=== PATIENT | male | born 1980 | race Caucasian/White ===

== ENCOUNTER 2024-04-05 17:28 | Emergency (ER) | payer BC ==
[2024-04-05] MEDS: Lidocaine 1% 20 ML MDV INJECT ONE (18:15)
[2024-04-05] MEDS: Diphtheria,Pertussis(Acell),Tetanus Vaccine 0.5 ML Syringe IM ONE (18:20)
[2024-04-05] MEDS ORDERED: ceFAZolin 1 GM in Sodium Chloride 0.9% 50 ML IV ONE (18:20)
[2024-04-05] MEDS: ceFAZolin 1 GM in Water For Injection, Sterile 10 ML IV ONE (18:38)
[2024-04-05] MEDS: HYDROmorphone 0.5 MG/0.5 ML Syringe IVPUSH ONE ×2 (18:47→19:31)
[2024-04-05] MEDS: Lidocaine 1% 10 ML MDV INJECT ONE ×2 (19:32→19:50)
[2024-04-05] MEDS ORDERED: Lidocaine 1% 10 ML MDV ONE (19:43)
[2024-04-05 21:21] VITALS: BP 131/78; PULSE 80
== END 2024-04-05 21:31 | disposition home or self-care (01) ==
LOC: JD.ED 17:28
DX: S62.635B Displaced fracture of distal phalanx of left ring finger, initial encounter for open fracture (principal); S62.633B Displaced fracture of distal phalanx of left middle finger, initial encounter for open fracture; Z23 Encounter for immunization; W23.1XXA Caught, crushed, jammed, or pinched between stationary objects, initial encounter
CPT/HCPCS: 11760; 73130; 90471; 90715; 96374; 96375; 96376; 99283; J0690; 99282; J3490